=== PATIENT | male | born 1990 | race Caucasian/White ===

== ENCOUNTER 2020-04-25 15:22 | Emergency (ER) | payer BC ==
[~2020-04-25] VITALS: Ht 175.3 cm; Wt 68.0 kg
[2020-04-25 15:32] VITALS: Ht 175.3 cm; Wt 68.0 kg
[2020-04-25 15:56] LABS: BASOPHIL % 0.3 % (0.2-1.5); PLATELET COUNT 235 x10^3mcL (152-348); RED CELL DISTRIBUTION WIDTH 13.5 % (12.1-16.2)
[2020-04-25 16:17] LABS: URIC ACID 4.9 mg/dL (3.5-7.2)
[2020-04-25 16:37] LABS: C REACTIVE PROTEIN 8.7 mg/dL (<=0.9)
[2020-04-25 16:43] LABS: ERYTHROCYTE SED RATE 67 mm/hr (0-15)
[2020-04-25 16:51] VITALS: BP 130/76
[2020-04-25] MEDS ORDERED: MOT600 PO (16:55)
[2020-04-25] MEDS ORDERED: CEPHALEXIN750 MG PO (16:55)
== END 2020-04-25 17:11 | disposition home or self-care (01) ==
LOC: ED 15:22
PROVIDERS: Emergency Medicine
DX: L03.115 Cellulitis of right lower limb (principal)